=== PATIENT | male | born 1970 | race African-American/Black ===

== ENCOUNTER 2019-10-03 08:18 | Inpatient (IN) ==
--- NOTE | 2019-10-01 13:15 | EKG Report ---
Test Performed on : 10/01/2019 1:08:33 PM Test Reason : PAT Blood Pressure : / mmHG Vent. Rate : 077 BPM Atrial Rate : 077 BPM P-R Int : 190 ms QRS Dur : 084 ms QT Int : 366 ms P-R-T Axes : 065 076 -07 degrees QTc Int : 414 ms Normal sinus rhythm. Minimal voltage criteria for LVH, may be normal variant ST elevation, consider lateral injury or acute infarct ACUTE [place] / STEMI Abnormal ECG When compared with ECG of 22-DEC-2014 16:55, Questionable change in QRS axis T wave inversion now evident in Inferior leads Nonspecific T wave abnormality no longer evident in Lateral leads Confirmed by Davy HENRIQUEZ, Mitchell cMguire ([id number]) on 10/03/2019 2:33:27 PM
[2019-10-01 13:22] LABS: BASO# 0.11 X1000 (0.0-0.2); BASO% 2.1 % (0.0-0.8); EOS% 1.9 % (0.0-10.0); HEMATOCRIT 38.4 % (42.0-52.0); HEMOGLOBIN 12.8 g/dL (14.0-18.0); LYMPH# 2.14 X1000 (1.2-3.4); LYMPH% 40.9 % (20.5-51.1); MCH 28.6 PG (27-31); MCHC 33.3 g/dL (33-37); MCV 85.7 FL (81-99); MONO# 0.66 X1000 (0.11-0.59); MONO% 12.6 % (1.7-9.3); MPV 8.6 FL (7.4-10.4); NEUT# 2.22 X1000 (1.4-6.5); NEUT% 42.5 % (42.2-75.2); PLT 337 X1000 (130-400); RBC 4.48 XMIL (4.7-6.1); WBC 5.23 X1000 (4.8-10.8)
[2019-10-01 14:05] LABS: AGAP 9; BUN 17 mg/dL (8-22); CALCIUM 9.4 mg/dL (8.8-10.2); CHLORIDE 101 mmol/L (98-107); COSMO 281; CREATININE 1.1 mg/dL (0.7-1.2); ESTIMATED GFR > 60; GLUCOSE 92 mg/dL (70-104); POTASSIUM 4.5 mmol/L (3.5-5.1); SODIUM 140 mmol/L (136-145); TCO2 30 mmol/L (25-35)
[2019-10-03] MEDS ORDERED: INVANZ 1 GM/NS 1 GM/50 ML IVPB ONE (09:10)
[2019-10-03] MEDS ORDERED: PEPCID ONE (09:10)
[2019-10-03] MEDS ORDERED: REGLAN ONE (09:10)
[2019-10-03] MEDS ORDERED: LR 1,000 ML ONE ×2 (09:10→10:19)
[2019-10-03] MEDS ORDERED: ENTEREG ONE (09:10)
[2019-10-03] MEDS ORDERED: LUBRIFRESH PM OPH OINTMENT ONE (09:19)
[2019-10-03] MEDS ORDERED: VERSED ONE (09:24)
[2019-10-03] MEDS ORDERED: FENTANYL ONE (09:24)
[2019-10-03] MEDS ORDERED: XYLOCAINE-MPF 2% ONE ×3 (09:24→13:45)
[2019-10-03] MEDS ORDERED: ROBINUL ONE (09:24)
[2019-10-03] MEDS ORDERED: QUELICIN (DOSE) ONE (09:24)
[2019-10-03] MEDS ORDERED: NORCURON ONE ×2 (09:24→12:46)
[2019-10-03] MEDS ORDERED: STERILE WATER INJ. ONE ×2 (09:24→12:46)
[2019-10-03] MEDS ORDERED: DIPRIVAN 1% ONE (09:25)
[2019-10-03] MEDS ORDERED: ZOFRAN ONE (11:07)
[2019-10-03] MEDS ORDERED: DECADRON ONE (11:07)
[2019-10-03] MEDS ORDERED: MARCAINE 0.25% PF ONE (11:08)
[2019-10-03] MEDS ORDERED: NEOSTIGMINE ONE (11:18)
[2019-10-03] MEDS ORDERED: DILAUDID ONE (11:23)
[2019-10-03] MEDS ORDERED: SODIUM CHLORIDE 0.9% 10 ML ONE (11:23)
[2019-10-03 12:03] LABS: URINE SOURCE CATH
[2019-10-03 12:12] LABS: BILIRUBIN URINE NEGATIVE (NEGATIVE); BLOOD URINE NEGATIVE (NEGATIVE); COLOR YELLOW; GLUCOSE URINE NEGATIVE (NEGATIVE); KETONE URINE NEGATIVE (NEGATIVE); LEUKOCYTES URINE NEGATIVE (NEGATIVE); NITRITE URINE NEGATIVE (NEGATIVE); PROTEIN URINE NEGATIVE (NEGATIVE); SP GRAVITY URINE 1.018; TURBIDITY URINE CLEAR (CLEAR); UR EPITHELIAL CELLS <10 /HPF (<10); URINE BACTERIA NEGATIVE /HPF; URINE RBC <10 /HPF (<10); URINE WBC <10 /HPF (<10); UROBILINOGEN URINE NORMAL (NORMAL)
[2019-10-03] MEDS ORDERED: PHENERGAN ONE (12:29)
[2019-10-03] MEDS ORDERED: TORADOL ONE (13:28)
[2019-10-03] MEDS ORDERED: DEMEROL ONE (13:51)
[2019-10-03] MEDS ORDERED: D5 1/2 NS + KCL 20 MEQ 1,000 ML ONE (14:17)
[2019-10-03] MEDS ORDERED: MORPHINE IV PRN (15:41)
[2019-10-03] MEDS ORDERED: ZOFRAN IV PRN (15:47)
[2019-10-03] MEDS ORDERED: ULTRAM PO PRN (15:49)
[2019-10-03] MEDS: D5 1/2 NS + KCL 20 MEQ 1,000 ML IV SCH (17:29)
[2019-10-03] MEDS: OFIRMEV 1000 MG/ISOTONIC SOLN 1,000 MG/100 ML BOTTLE IV SCH ×2 (17:30→23:33)
[2019-10-03] MEDS: MOTRIN PO SCH ×2 (17:30→23:33)
[2019-10-03] MEDS: TIMOPTIC 0.5% OPH SOLUTION BOTH EYES SCH (17:31)
[2019-10-03] MEDS ORDERED: XALATAN 0.005% OPH SOLN BOTH EYES SCH (21:00)
--- NOTE | 2019-10-03 22:09 | OPERATIVE NOTE ---
PROCEDURE DATE: 10/03/2019 PREOPERATIVE DIAGNOSIS: Cancerous polyp mid sigmoid colon. POSTOPERATIVE DIAGNOSIS: Cancerous polyp mid sigmoid colon. PRINCIPAL PROCEDURE: Robotic-assisted laparoscopic sigmoid colectomy. SURGEON: Tina Abarca MD. GRANTS ADMINISTRATOR: Symone Swan MD ANESTHESIA: General in addition to local anesthetic. ESTIMATED BLOOD LOSS: 75-100 mL. DRAINS: None. INDICATIONS: Mr. Nirmal Monroy is a 49-year-old, healthy black male who underwent a screening colonoscopy per Dr. Luke Wheeler, and 2 polyps were found. One was in the ascending colon and was benign. One was in the sigmoid colon, which was removed and was cancerous. Sigmoid colectomy was recommended. FINDINGS: There was tattoo staining from removal of the previous cancerous polyp mid sigmoid colon. There was not any evidence of enlarged lymph nodes in the abdomen or metastatic spread. No other intra-abdominal pathology was noted. We removed the sigmoid colon with descending to end proximal rectum 28 mm EEA stapled anastomosis. DESCRIPTION OF PROCEDURE: The patient was brought to the operating room, placed supine, received general anesthesia, and was intubated. Garcia catheter tube was placed, and he was placed in the modified lithotomy position, and his abdomen was prepped and draped in a sterile field. I began the procedure by making a small incision just at the umbilicus. A Veress needle was introduced through this incision. Pneumoperitoneum was established, and then I placed my trocars. I placed a 12 mm trocar right lower quadrant of the abdomen. I placed another 12 mm trocar at the umbilicus for the camera and two 8 mm trocars, 1 mid left abdomen and 1 left flank. I placed another trocar 5 mm in the right upper quadrant of the abdomen. All these trocars were placed under direct vision of the camera. At this point, I went to the console, and the robot was brought to the patient at the left hip. Initially, I used a 30-degree camera, a bowel grasper, cadiere and scissors with cautery to begin my dissection. I performed a medial to lateral dissection. Then I began in an inferior mesenteric artery approach. The patient was placed in Trendelenburg with left side up somewhat so that the small bowel could fall away to the right side of the abdomen. I raised the sigmoid colon with my bowel grasper, and using cadiere and the scissors with cautery, I incised the peritoneum at the sacral promontory and performed mostly blunt dissection from medial to lateral. I identified not only the right ureter but also the left ureter during my dissection and the gonadal vessels. I stayed superficial to these, and I pushed these retroperitoneal structures down with the sigmoid colon mesentery being dissected superiorly. I was raising the inferior mesenteric artery up so that I could see it at its stalk. Once I encircled the inferior mesenteric artery, I placed the vessel sealer and came across the base of the inferior mesenteric artery. I continued my medial lateral dissection above this artery. It was easier now that it was taken again by raising the sigmoid colon and dissecting in a medial lateral approach. I then directed my attention to the rectum. I took the proximal rectum with a stapler at the sacral promontory. I made sure that it was cleaned of any fat and mesentery circumferentially using the vessel sealer. I made sure that I took the lateral attachments of the sigmoid colon and even the descending colon as high as the robotic instruments would let me. I did this mostly with scissors and cautery. At this time, I thought I had good length on the colon so that I could resect the sigmoid colon and bring the descending colon down to the rectal stump. At this point, the robot was undocked. I went to the bedside and made a small incision. This was a longitudinal incision in the left lower quadrant of the abdomen with a 15 blade scalpel. The cautery was used to transect the skin and soft tissue down to the muscle layers which we divided bluntly and then the posterior fascia was entered, and the peritoneal cavity was entered. We identified the sigmoid colon. We brought it out through this incision. I used a pursestring instrument to create a pursestring at the descending colon. It was fired and then I cut the specimen side with a curved. Thomason scissor. The specimen was brought out through this incision. We chose a 28 mm anvil, and it was placed into the descending colon. The pursestring was tied around it. We took some time to clean off the fat from this anvil. It must be noted that we used a small wound protector in this incision. We put the descending colon back intra-abdominally with the anvil in place. We re-established the pneumoperitoneum. I went below and Dr. Leander Swan was above. I placed the EEA stapler through the anus and rectum and directed it proximally as Dr. Swan mated the anvil to this EEA stapler. They were brought together and fired. We had 2 complete donuts. At this time, I blew air using a rigid proctoscope across our anastomosis, and there was no evidence of leak. There was no tension on it. We felt our blood supply was good. There was no twisting. We removed all irrigation fluid. There was no evidence of ongoing bleeding. All trocars removed. The pneumoperitoneum was allowed to dissipate. I closed our left- sided incision in layers. First layer was a running 0 Vicryl stitch and then the anterior fascia was closed with a running #1 Maxon stitch. We closed our 12 mm port sites with 2-0 Vicryl stitches. The skin was closed with 4-0 Monocryl subcuticular stitches. Plans are to leave the Garcia catheter tube. We did not use an NG tube. He will go to the recovery room and then the floor. It must be noted that Dr. Leander Swan was present throughout the case. His presence was necessary for help with exposure and decision making. His help was also needed for delivering the specimen out of the abdomen, and laparoscopically he helped mate the descending colon to the EEA stapler in the rectum. He also helped close all our incisions. He was present throughout the case. cc: Tina Abarca MD [facility]
[2019-10-03] MEDS: LIPITOR PO SCH (22:27)
[2019-10-03] MEDS: PERIDEX MT SCH (22:27)
[2019-10-04] MEDS: OFIRMEV 1000 MG/ISOTONIC SOLN 1,000 MG/100 ML BOTTLE IV SCH ×2 (06:28→12:17)
[2019-10-04] MEDS: LOVENOX SUBQ SCH (06:28)
[2019-10-04] MEDS: D5 1/2 NS + KCL 20 MEQ 1,000 ML IV SCH ×2 (07:33→18:55)
[2019-10-04] MEDS: MOTRIN PO SCH ×2 (09:30→16:46)
[2019-10-04] MEDS: HYDROCHLOROTHIAZIDE PO SCH (09:31)
[2019-10-04] MEDS: TIMOPTIC 0.5% OPH SOLUTION BOTH EYES SCH ×3 (09:31→16:48)
[2019-10-04] MEDS: ENTEREG PO SCH ×2 (09:31→21:41)
[2019-10-04] MEDS: DIOVAN PO SCH (09:31)
[2019-10-04] MEDS: PERIDEX MT SCH ×2 (09:32→21:41)
--- NOTE | 2019-10-04 12:08 | PROGRESS NOTE ---
DATE: 10/04/2019 SUBJECTIVE: Mr. Nirmal Monroy is a 49-year-old black male who underwent a robotic assisted laparoscopic sigmoid colectomy for cancerous polyp yesterday. We performed an end descending to end proximal rectum stapled anastomosis. We thought everything went well. No drains were left. We did not use an NG tube. We left the Garcia catheter tube in place. This morning he is sitting up. He is tolerating liquids. He is having no significant abdominal pain. He has had several liquid bowel movements related to his bowel prep. He states also that he has had some flatus. We will discontinue his Garcia catheter tube and allow him to get up out of bed. Will keep him on clear liquids and his IV fluids going for now. cc: Tina Abarca MD
[2019-10-04] MEDS: XALATAN 0.005% OPH SOLN BOTH EYES SCH (16:48)
[2019-10-04] MEDS: LIPITOR PO SCH (21:41)
[2019-10-05] MEDS: MOTRIN PO SCH ×3 (04:23→18:15)
[2019-10-05] MEDS: LOVENOX SUBQ SCH (06:28)
[2019-10-05] MEDS: HYDROCHLOROTHIAZIDE PO SCH (09:54)
[2019-10-05] MEDS: ENTEREG PO SCH ×2 (09:55→22:36)
[2019-10-05] MEDS: DIOVAN PO SCH (09:55)
[2019-10-05] MEDS: TIMOPTIC 0.5% OPH SOLUTION BOTH EYES SCH ×3 (09:55→18:15)
[2019-10-05] MEDS: PERIDEX MT SCH ×2 (09:56→22:36)
--- NOTE | 2019-10-05 13:10 | PROGRESS NOTE ---
DATE: 10/05/2019 Mr. Monroy is now postop day 2 from a robotic-assisted laparoscopic sigmoid colon resection. His postoperative convalescence has been normal. He is sitting up today. He has very little pain in his abdomen. He is tolerating liquids, and has had bowel movements and gas. We will advance his diet and work towards getting him home. cc: Tina Abarca MD
[2019-10-05] MEDS: D5 1/2 NS + KCL 20 MEQ 1,000 ML IV SCH (18:14)
[2019-10-05] MEDS: XALATAN 0.005% OPH SOLN BOTH EYES SCH (18:15)
[2019-10-05] MEDS: LIPITOR PO SCH (22:36)
[2019-10-06] MEDS: MOTRIN PO SCH ×2 (05:40→08:31)
[2019-10-06] MEDS: D5 1/2 NS + KCL 20 MEQ 1,000 ML IV SCH (05:40)
[2019-10-06] MEDS: LOVENOX SUBQ SCH (06:01)
[2019-10-06 07:52] VITALS: BP 119/86
[2019-10-06] MEDS: DIOVAN PO SCH (08:29)
[2019-10-06] MEDS: TIMOPTIC 0.5% OPH SOLUTION BOTH EYES SCH (08:29)
[2019-10-06] MEDS: PERIDEX MT SCH (08:31)
[2019-10-06] MEDS: ENTEREG PO SCH (08:31)
[2019-10-06] MEDS: HYDROCHLOROTHIAZIDE PO SCH (08:31)
--- NOTE | 2019-10-06 17:11 | DISCHARGE SUMMARY ---
ADMISSION DATE: 10/03/2019 DISCHARGE DATE: 10/06/2019 ADMITTING DIAGNOSIS: Sigmoid colon cancer. DISCHARGE DIAGNOSIS: Sigmoid colon cancer. PRINCIPAL PROCEDURE: Robotic-assisted laparoscopic sigmoid colon resection on 10/03/2019. DISCHARGE DISABILITY: Full. DISCHARGE DISPOSITION: He will return to our outpatient offices in a week for followup. DISCHARGE DIET: Regular. DISCHARGE MEDICATIONS: He is to return to his home medications. HOSPITAL COURSE: Mr. Nirmal Monroy is a 49-year-old -Citizen Of [place] male who underwent a screening colonoscopy at age 49 [address] Luke Wheeler and it was documented that he had a cancerous polyp in the sigmoid colon. He was sent to us for resection. Prior to his admission on 10/03/2019, he underwent a bowel prep. He was admitted on the day of surgery and underwent a robotic-assisted laparoscopic sigmoid colon resection with an end descending colon to proximal rectal end-to-end 28 mm EEA anastomosis. No other intraabdominal pathology was noted. We felt the operation went well and after surgery, he went to the recovery room with Garcia catheter tube in place. We did not use an NG tube. He was hospitalized on [address] [place] [address] and we felt that his postoperative convalescence was normal. We began him on clear liquids. The evening of surgery we were able to advance that diet on postop day 2 and on postop day 3 it was felt safe to discharge him to his home under the care of his family. At discharge, he was easily moving around in the jalloh and room, he was tolerating a regular diet. He has had some bowel activity and his trocar sites were healing well. He knows to contact me with any problems such as increasing abdominal pain, fever or nausea and vomiting. Otherwise I will see him in our outpatient offices in approximately a week to go over his pathology report and recheck his abdomen. cc: Lazaro Wheeler DO
== END 2019-10-06 09:08 | disposition home or self-care (01) | DRG 330 ==
LOC: SURHOLD 08:18 → 4N 15:49
PROVIDERS: ADMIT Surgery; ATTEND Surgery